=== PATIENT | male | born 1950 | race Caucasian/White ===

== ENCOUNTER 2018-03-18 10:26 | Emergency (ER) | payer OTHER ==
[~2018-03-18] VITALS: Ht 157.5 cm; Wt 63.1 kg
[2018-03-18 10:30] VITALS: BP 186/89
--- NOTE | 2018-03-18 10:37 | NUR ---
PT AMBULATES TO BED 4
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
--- NOTE | 2018-03-18 11:08 | NUR ---
Patient being evaluated by physician at bedside.
[2018-03-18 11:14] VITALS: BP 158/85
--- NOTE | 2018-03-18 11:15 | NUR ---
Patient discharged with v/s stable. Written and verbal after care instructions given and explained. Patient verbalized understanding. Ambulatory with steady gait. All questions addressed prior to discharge. Advised to follow up with PMD.
== END 2018-03-18 11:15 | disposition home or self-care (01) ==
LOC: MED 10:26
DX: S29.012A Strain of muscle and tendon of back wall of thorax, initial encounter (principal); S80.812A Abrasion, left lower leg, initial encounter; E11.9 Type 2 diabetes mellitus without complications; I10 Essential (primary) hypertension; V43.52XA Car driver injured in collision with other type car in traffic accident, initial encounter; Y93.I9 Activity, other involving external motion; Y92.488 Other paved roadways as the place of occurrence of the external cause; Y99.8 Other external cause status
CPT/HCPCS: 99281